=== PATIENT | female | born 1945 | race Caucasian/White ===

== ENCOUNTER 2017-06-17 21:58 | Observation (INO) | payer MEDICARE ==
[2017-06-17] MEDS ORDERED: NITROGLYCERIN 0.4 MG TAB SL PRN (22:01)
[2017-06-17] MEDS ORDERED: ASPIRIN 81 MG CHEWABLE CTB PO ONE (22:02)
[2017-06-17] MEDS ORDERED: ASPIRIN 81 MG CHEWABLE CTB ONE (22:02)
[2017-06-17] MEDS ORDERED: NITROGLYCERIN 0.4 MG TAB SL ONE (22:02)
[2017-06-17] MEDS ORDERED: FUROSEMIDE 40 MG SOL IV ONE (22:05)
[2017-06-17] MEDS ORDERED: ALBUTEROL/IPRATROPIUM 1 VIAL SOL INH ONE (22:23)
[2017-06-17 22:24] LABS: BASOPHILS % (AUTO) 1 % (0-3); EOSINOPHILS % (AUTO) 8 % (0-9); HEMATOCRIT 29 % (35-47); MEAN CORPUSCULAR HGB CONC 34.1 gm/dl (32.0-36.0); MEAN CORPUSCULAR VOLUME 87 fL (81-99); NEUTROPHILS % (AUTO) 63.9 % (37-80)
[2017-06-17] MEDS ORDERED: ALBUTEROL/IPRATROPIUM 1 VIAL SOL ONE (22:24)
[2017-06-17 22:37] LABS: ALT 17 IU/L (14-63); CALCIUM 8.1 mg/dl (8.5-10.1); GLOM FILT RATE 64 mL/min (>60); POTASSIUM 4.3 mMol/L (3.5-5.1); SODIUM 131 mMol/L (136-145)
[2017-06-17] MEDS ORDERED: FUROSEMIDE 40 MG SOL ONE (22:49)
[2017-06-17] MEDS ORDERED: SODIUM CHLORIDE 0.9% FLUSH 10 ML SOL IV PRN (22:59)
[2017-06-18 07:21] LABS: CALCIUM 8.2 mg/dl (8.5-10.1); POTASSIUM 3.9 mMol/L (3.5-5.1)
[2017-06-18 07:41] LABS: BASOPHILS % (AUTO) 1 % (0-3); EOSINOPHILS % (AUTO) 11 % (0-9); HEMATOCRIT 28 % (35-47); MEAN CORPUSCULAR HGB CONC 35.8 gm/dl (32.0-36.0); MEAN CORPUSCULAR VOLUME 88 fL (81-99); MONOCYTES % (AUTO) 11.1 % (0-12); NEUTROPHILS % (AUTO) 54.8 % (37-80)
[2017-06-18 08:38] VITALS: O2SAT 96
[2017-06-18 08:39] VITALS: BP 184/67; PULSE 61; RESP 20; TEMP 97.8
[2017-06-18] MEDS: NOVOLOG FLEXPEN SC SCH ×2 (08:48→08:58)
[2017-06-18] MEDS ORDERED: MULTIVITAMIN2 1 EA TAB PO SCH (09:00)
[2017-06-18] MEDS ORDERED: ENOXAPARIN 40 MG SOL SC SCH (09:00)
[2017-06-18] MEDS ORDERED: PROPRANOLOL HCL 40 MG TAB PO SCH (09:00)
[2017-06-18] MEDS ORDERED: CHOLECALCIFEROL 1,000 IU TAB PO SCH (09:00)
[2017-06-18] MEDS ORDERED: SIMVASTATIN 20 MG TAB PO SCH (09:00)
[2017-06-18] MEDS ORDERED: GABAPENTIN 300 MG CAP PO SCH ×2 (09:00→21:00)
[2017-06-18] MEDS ORDERED: FUROSEMIDE 40 MG TAB PO SCH (09:00)
[2017-06-18] MEDS ORDERED: PRIMIDONE 50 MG TAB PO SCH (09:00)
[2017-06-18] MEDS ORDERED: LOSARTAN POTASSIUM 50 MG TAB PO SCH (09:00)
== END 2017-06-18 10:35 | disposition home or self-care (01) | DRG 292 ==
LOC: ED 21:58 → ACUTE CARE 23:35
PROVIDERS: ADMIT Emergency Medicine; ATTEND Emergency Medicine
DX: I50.9 Heart failure, unspecified (principal); E87.1 Hypo-osmolality and hyponatremia; D64.9 Anemia, unspecified; E11.9 Type 2 diabetes mellitus without complications; I25.119 Atherosclerotic heart disease of native coronary artery with unspecified angina pectoris; R79.89 Other specified abnormal findings of blood chemistry; R09.02 Hypoxemia; Z79.4 Long term (current) use of insulin
CPT/HCPCS: 36415; 71010; 80048; 80053; 82962; 83880; 84484; 85025; 93005; 93012; 99285; J1650; J1940; J7620